=== PATIENT | male | born 1965 | race African-American/Black ===

== ENCOUNTER 2018-05-18 19:27 | Emergency (ER) | payer MEDICAID, OTHER ==
[~2018-05-18] VITALS: Ht 166.4 cm; Wt 64.7 kg
[~2018-05-18 19:27] MED LIST: FLUO10CA25 PO; QUET25TA PO
[2018-05-18] MEDS ORDERED: TETANUS, DIPHTHERIA, PERTUSSIS VAC/PF 0.5ML (>7YR OLD) IM ONE (21:00)
[2018-05-18] MEDS ORDERED: BACITRACIN ZINC OINT UDPKT TOP ONE (21:00)
[2018-05-18] MEDS ORDERED: LIDOCAINE HCL/EPINEPHRINE 1%-EPI 1:100,000 20 ML VIAL INFIL ONE (21:00)
[2018-05-18] MEDS ORDERED: IBUPROFEN 600MG TABLET PO ONE (21:15)
[2018-05-18 21:57] VITALS: BP 145/99
== END 2018-05-18 22:09 | disposition home or self-care (01) ==
LOC: ER 19:27
DX: S01.81XA Laceration without foreign body of other part of head, initial encounter (principal); Y00.XXXA Assault by blunt object, initial encounter; Y93.01 Activity, walking, marching and hiking; Y92.488 Other paved roadways as the place of occurrence of the external cause
CPT/HCPCS: 12011; 90471; 90715; 99283; J3490; X7700; Z7610

== ENCOUNTER 2021-03-17 11:35 | Emergency (ER) | payer MEDICAID, OTHER ==
[~2021-03-17] VITALS: Ht 167.6 cm; Wt 80.0 kg
[2021-03-17 15:09] VITALS: BP 166/84
[2021-03-17 15:24] LABS: BASOPHILS % 0.4 % (0.0-2.0); EOSINOPHILS % 0.5 % (0.0-5.0); HEMATOCRIT. 45.4 % (42.0-52.0); HEMOGLOBIN. 15.6 g/dL (14.0-18.0); LYMPHOCYTES % 10.4 % (20.0-50.0); NEUTROPHILS % 76.7 % (40.0-76.0); PLATELET 307 x1000/uL (130-400); RED BLOOD CELL COUNT 4.88 mill/uL (4.7-6.1); RED CELL DISTRIBUTION WIDTH 12.8 % (11.6-14.6)
[2021-03-17] MEDS ORDERED: ACETAMINOPHEN 325MG TABLET PO ONE (15:30)
[2021-03-17 15:31] LABS: CHLORIDE 101 mEq/L (98-107)
== END 2021-03-17 16:55 | disposition home or self-care (01) ==
LOC: ER 11:35
DX: M94.0 Chondrocostal junction syndrome [Tietze] (principal); R07.81 Pleurodynia; R03.0 Elevated blood-pressure reading, without diagnosis of hypertension; Y04.0XXA Assault by unarmed brawl or fight, initial encounter; Y93.89 Activity, other specified; Y92.89 Other specified places as the place of occurrence of the external cause; F12.90 Cannabis use, unspecified, uncomplicated
CPT/HCPCS: 36415; 71045; 80053; 83880; 84484; 85025; 93005; 99285

== ENCOUNTER 2023-02-25 17:06 | Emergency (ER) | payer MEDICAID, OTHER ==
[~2023-02-25] VITALS: Ht 172.7 cm; Wt 64.0 kg
[2023-02-25 17:11] VITALS: BP 132/88; PULSE 106; RESP 16; TEMP 99.1; O2SAT 98
[2023-02-25] MEDS ORDERED: LIDOCAINE HCL 1% 20ML VIAL (Pyxis) INJ INFIL ONE (17:30)
[2023-02-25] MEDS ORDERED: TETANUS, DIPHTHERIA, PERTUSSIS VAC/PF 0.5ML (>10YR OLD) IM ONE (17:30)
[2023-02-25] MEDS ORDERED: HYDROCODONE/ACETAMINOPHEN 5/325MG TABLET PO ONE (18:45)
[2023-02-25] MEDS ORDERED: IBUP-2029 MT (19:04)
[2023-02-25] MEDS ORDERED: AMOX1TAB16 MT (19:04)
== END 2023-02-25 19:41 | disposition home or self-care (01) ==
LOC: ER 17:06
DX: S51.011A Laceration without foreign body of right elbow, initial encounter (principal); F12.10 Cannabis abuse, uncomplicated; X58.XXXA Exposure to other specified factors, initial encounter; Y93.89 Activity, other specified; Y92.89 Other specified places as the place of occurrence of the external cause; Y99.8 Other external cause status
CPT/HCPCS: 90715; 12006; 90471; 99283; J3490; Z7610 ×2